=== PATIENT | female | born 1940 | race Caucasian/White ===

== ENCOUNTER 2025-08-24 14:11 | Outpatient (CLI) | payer MEDICARE, OTHER, SELFPAY | END 2025-08-24 14:12 | disposition home or self-care (01) | LOC: AMB 08-26 23:21 | PROVIDERS: Visit Provider Emergency Medicine Emergency Medical Services | DX: S79.912A Unspecified injury of left hip, initial encounter (principal); W01.0XXA Fall on same level from slipping, tripping and stumbling without subsequent striking against object, initial encounter; Y92.019 Unspecified place in single-family (private) house as the place of occurrence of the external cause | CPT/HCPCS: A0425; A0433 ==